=== PATIENT | female | born 1980 | race Caucasian/White ===

== ENCOUNTER → 2024-05-17 15:20 | Outpatient (REF) | payer OTHER, SELFPAY | LOC: HWWDC 15:20 | DX: Z12.31 Encounter for screening mammogram for malignant neoplasm of breast (principal) | CPT/HCPCS: 77063; 77067 ==

== ENCOUNTER → 2024-09-13 13:25 | Outpatient (REF) | payer OTHER, SELFPAY | LOC: WDC 13:25 | DX: R92.333 Mammographic heterogeneous density, bilateral breasts (principal) | CPT/HCPCS: 76641 ==

== ENCOUNTER → 2025-01-16 15:02 | Outpatient (REF) | payer OTHER, SELFPAY | LOC: RAD 15:02 | DX: S09.90XA Unspecified injury of head, initial encounter (principal); S00.33XA Contusion of nose, initial encounter; R51.9 Headache, unspecified; R11.0 Nausea; R13.0 Aphagia; R47.1 Dysarthria and anarthria; F40.298 Other specified phobia | CPT/HCPCS: 70450 ==